=== PATIENT | female | born 1985 | race Hispanic/Latino ===

== ENCOUNTER 2017-08-28 15:12 | Emergency (ER) | payer OTHER ==
[~2017-08-28] VITALS: Ht 157.5 cm; Wt 86.2 kg
[2017-08-28] MEDS ORDERED: SODIUM CHLORIDE 0.9% 1000ML 1,000 ML ONE (15:30)
[2017-08-28] MEDS ORDERED: ONDANSETRON HCL INJ 2 MG/ML VIAL IV ONE (16:00)
[2017-08-28] MEDS ORDERED: IBUPROFEN400 MG PO (16:33)
[2017-08-28] MEDS ORDERED: BROMFED DM COU118 ML PO (16:33)
[2017-08-28] MEDS ORDERED: ZOFRAN ODT4 MG SL (16:33)
[2017-08-28] MEDS ORDERED: KETOROLAC TROMETHAMINE 30 MG/ML VIAL IV ONE (16:45)
[2017-08-28 16:53] VITALS: BP 117/70
== END 2017-08-28 17:15 | disposition home or self-care (01) ==
LOC: FSED 15:12
DX: R50.9 Fever, unspecified (principal); R05 Cough; R51 Headache; J00 Acute nasopharyngitis [common cold]
CPT/HCPCS: 80053; 81025; 85025; 99283; J2405; J7030

== ENCOUNTER 2017-09-17 00:12 | Emergency (ER) | payer OTHER ==
[~2017-09-17] VITALS: Ht 157.5 cm; Wt 88.5 kg
[~2017-09-17 00:12] MED LIST: BROMFED DM COU118 ML PO; IBUPROFEN400 MG PO; ZOFRAN ODT4 MG SL
--- OUTSIDE RECORDS SUMMARY | 2017-09-17 00:14 | XMS REPORT | Continuity of Care Document ---
Author Author [facility] Organization [facility] Address [address] [place] [address] Phone Unavailable Care Team Providers Care Director Of Research And Development Name Role Phone NO, PCP PCP Unavailable Insurance Providers Guarantor Fay Murphy Address [address] [place] [address] Payer [employer] o Policy Number [id number] Subscriber's Name Fay Murphye Relationship 18 Self / Same As Patient Advance Directives Directive Response Recorded Date/Time Does the patient have an advance directive? No 08/28/17 3:46pm Do you have a Directive to Physician? No 08/28/17 3:46pm Do you have a Medical Power of Communications Controller? No 08/28/17 3:46pm Do you have an out of hospital Do Not Resuscitate Order? No 08/28/17 3:46pm Do you have any special needs we should be aware of? No 08/28/17 3:47pm Do you have a support person here with you today? Yes 08/28/17 3:47pm Did patient receive Notice of Privacy Practices? Yes 08/28/17 3:47pm Did patient receive patient rights and responsibilities? Yes 08/28/17 3:47pm Problems No problem information available. Medications Current Home Medications Medication Dose Units Route Directions Days Qty Instructions Start Date D-Methorphan Hb/P-Epd Hcl/Bpm (Bromfed Dm Cough Syrup) 118 Ml Syrup 10 Ml Oral Every 4 Hours as needed for Cough 240 Milliliter 08/28/17 Ibuprofen 400 Mg Tablet 400 Mg Oral Every 4 Hours as needed for Fever/Pain 30 Tab May take with 500mg Tylenol for extra pain/fever control. 08/28/17 Ondansetron (Zofran Odt) 4 Mg Tab.rapdis 4 Mg Sublingual Every 6 Hours as needed for Nausea 14 08/28/17 Social History Smoking Status Start Date Stop Date Never Smoker Hospital Discharge Instructions No hospital discharge instruction information available. Plan of Care Discharge Date 08/28/17 5:15pm Disposition HOME, SELF-CARE Condition at Discharge Stable Instructions/Education Provided Upper Respiratory Infection - Adult Viral Syndrome - Adult Forms Provided Work/School Excuse Prescriptions See Medication Section Referrals Fanny SOLIS (JAZMINE) Address: [address] [place] [address] Functional Status No functional status information available. Allergies, Adverse Reactions, Alerts No known allergies. Immunizations No immunization information available. Vital Signs Acute Vital Signs Vital Response Date/Time Temperature (Fahrenheit) 98.1 degrees F (97.6 - 99.5) 08/28/2017 4:53pm Pulse Pulse Rate (adult) 77 bpm (60 - 90) 08/28/2017 4:53pm Respiratory Rate 18 bpm (12 - 24) 08/28/2017 4:53pm Blood Pressure 117/70 mm Hg 08/28/2017 4:53pm Height 5 ft 2 in 08/28/2017 3:15pm Weight 190 lb 08/28/2017 3:15pm Body Mass Index 34.8 kg/m^2 08/28/2017 3:15pm Results No relevant diagnostic test, laboratory data and/or discharge summary information available. Procedures No procedure information available. Encounters Encounter Location Arrival/Admit Date Discharge/Depart Date Attending Provider Departed Emergency Room [facility] 08/28/17 3:12pm 5:15pm HIPOLITO STARR MD
== END 2017-09-17 01:17 | disposition home or self-care (01) ==
LOC: FSED 00:12
DX: M54.5 Low back pain (principal); S39.012A Strain of muscle, fascia and tendon of lower back, initial encounter
CPT/HCPCS: 99282

== ENCOUNTER 2020-10-31 09:34 | Emergency (ER) | payer OTHER ==
[~2020-10-31] VITALS: Ht 157.5 cm; Wt 86.2 kg
[2020-10-31] MEDS ORDERED: IBUPROFEN 600 MG TAB PO STA (10:44)
[2020-10-31] MEDS ORDERED: CYCLOBENZAPRINE HCL 10 MG TAB PO ONE (10:45)
[2020-10-31] MEDS ORDERED: IBUPROFEN 200 MG TAB ONE (11:04)
[2020-10-31] MEDS ORDERED: NAPROSYN500 MG PO (12:48)
[2020-10-31] MEDS ORDERED: TYLENOL # 31 EA PO (12:50)
[2020-10-31] MEDS ORDERED: CYCLOBENZAPRINE10 MG PO (12:50)
== END 2020-10-31 13:02 | disposition home or self-care (01) ==
LOC: FSED 10:00
DX: S13.4XXA Sprain of ligaments of cervical spine, initial encounter (principal); S33.5XXA Sprain of ligaments of lumbar spine, initial encounter; M25.512 Pain in left shoulder; V43.51XA Car driver injured in collision with sport utility vehicle in traffic accident, initial encounter; Y92.488 Other paved roadways as the place of occurrence of the external cause
CPT/HCPCS: 72110; 72125; 81025; 99283